=== PATIENT | male | born 1970 | race Caucasian/White ===

== ENCOUNTER 2023-08-20 10:40 | Day surgery (SDC) | payer BC ==
[~2023-08-20] VITALS: Ht 180.3 cm; Wt 112.6 kg
[2023-08-20] VITALS (7 sets, daily range): BP systolic 126–157; BP diastolic 89–111; PULSE 62–107; RESP 16; TEMP 98.1; O2SAT 93–100
[2023-08-20] MEDS ORDERED: SOTA80TA73 PO (11:02)
[2023-08-20] MEDS ORDERED: DILT120C52 PO (11:02)
[2023-08-20] MEDS ORDERED: APIX5TAB3 PO (11:02)
[2023-08-20] MEDS ORDERED: atropine 0.1mg/ml 10ml syringe IV ONE (11:05)
[2023-08-20] MEDS ORDERED: LORazepam 0.5 MG tablet PO ONE (11:05)
[2023-08-20] MEDS ORDERED: morphine 10mg/ml inj. IV ONE (11:05)
[2023-08-20] MEDS ORDERED: amiodarone 150mg/dext, iso-os 100 ML IV ONE (11:05)
[2023-08-20] MEDS ORDERED: normal saline 1000ml 1,000 ML IV SCH (11:05)
[2023-08-20] MEDS ORDERED: MIDAZolam 1mg/ml 10ml vial IV ONE ×2 (11:05→11:45)
[2023-08-20] MEDS ORDERED: diphenhydrAMINE 25mg capsule PO ONE (11:05)
[2023-08-20] MEDS ORDERED: fentaNYL/PF 50MCG/1 ML 2ML syringe IV ONE (11:45)
[2023-08-20 12:19] LABS: BASOPHILS # (AUTO) 0.1 X10'3 (0-0.2); BASOPHILS % (AUTO) 0.8 % (0-1); EOSINOPHILS # (AUTO) 0.1 X10'3 (0-0.9); EOSINOPHILS % (AUTO) 1.4 % (0-6); HEMATOCRIT 52.2 % (42.0-52.0); HEMOGLOBIN 17.9 g/dl (14.0-17.9); LYMPHOCYTES # (AUTO) 1.9 X10'3 (1.1-4.8); LYMPHOCYTES % (AUTO) 18.3 % (21-51); MEAN CORPUSCULAR HEMOGLOBIN 30.9 PG (27.0-31.0); MEAN CORPUSCULAR HGB CONC 34.4 g/dL (33.0-36.5); MEAN CORPUSCULAR VOLUME 89.9 FL (78-98); MEAN PLATELET VOLUME 8.1 FL (7.4-10.4); MONOCYTES # (AUTO) 0.8 X10'3 (0-0.9); MONOCYTES % (AUTO) 8.2 % (2-12); NEUTROPHILS # (AUTO) 7.4 X10'3 (1.8-7.7); NEUTROPHILS % (AUTO) 71.3 % (42-75); PLATELET COUNT 292 X10'3 (140-440); RED BLOOD COUNT 5.81 X10'6 (4.70-6.10); RED CELL DISTRIBUTION WIDTH 14.3 % (11.5-14.5); WHITE BLOOD COUNT 10.4 X10'3 (4.5-11.0)
[2023-08-20 12:24] LABS: ALBUMIN 3.7 G/DL (3.4-5.0); ANION GAP 12 (8-16); BLOOD UREA NITROGEN 12 MG/DL (7-18); BUN/CREATININE RATIO 12.1 (10.0-20.0); CALCIUM 8.9 MG/DL (8.5-10.1); CHLORIDE 105 MMOL/L (99-107); CREATININE 0.99 MG/DL (0.60-1.10); GLUCOSE 101 MG/DL (70-104); POTASSIUM 4.4 MMOL/L (3.5-5.1); SODIUM 140 MMOL/L (135-145); TOTAL CARBON DIOXIDE 22.9 MMOL/L (24-32); eCRCL 94 ML/MIN; eGFR 80 ML/MIN
[2023-08-20 12:27] LABS: INR 1.1 INR; PROTHROMBIN TIME 11.7 SECONDS (9.0-12.0)
== END 2023-08-20 13:30 | disposition home or self-care (01) ==
LOC: SSTAY O 10:40
PROVIDERS: ATTEND Student in an Organized Health Care Education/Training Program
DX: I48.91 Unspecified atrial fibrillation (principal); I10 Essential (primary) hypertension; G47.33 Obstructive sleep apnea (adult) (pediatric); Z88.0 Allergy status to penicillin; Z79.899 Other long term (current) drug therapy; Z79.01 Long term (current) use of anticoagulants
CPT/HCPCS: 36415; 80048; 85025; 85610; 92960; 93005; J2250; J3010; J7030

== ENCOUNTER → 2023-10-08 | Day surgery (SDC) | payer BC ==
[~2023-10-08] VITALS: Ht 180.3 cm; Wt 112.6 kg
[~2023-10-08] MED LIST: APIX5TAB3 PO; DILT120C52 PO; LOSA25TA41 PO; SOTA80TA73 PO
[2023-10-08 12:13] VITALS: BP 142/100; PULSE 79; RESP 12; TEMP 98.2; O2SAT 95
[2023-10-08] MEDS: normal saline 1000ml 1,000 ML IV SCH (12:15)
[2023-10-08 13:04] LABS: BASOPHILS # (AUTO) 0.1 X10'3 (0-0.2); EOSINOPHILS # (AUTO) 0.2 X10'3 (0-0.9); MEAN CORPUSCULAR HGB CONC 34.1 g/dL (33.0-36.5); MONOCYTES # (AUTO) 0.8 X10'3 (0-0.9); RED CELL DISTRIBUTION WIDTH 13.9 % (11.5-14.5)
[2023-10-08 13:06] LABS: BASOPHILS % (AUTO) 0.7 % (0-1); EOSINOPHILS % (AUTO) 1.6 % (0-6); HEMATOCRIT 53.3 % (42.0-52.0); LYMPHOCYTES % (AUTO) 18.3 % (21-51); MEAN CORPUSCULAR HEMOGLOBIN 30.8 PG (27.0-31.0); MEAN CORPUSCULAR VOLUME 90.1 FL (78-98); MEAN PLATELET VOLUME 8.6 FL (7.4-10.4); MONOCYTES % (AUTO) 7.4 % (2-12); NEUTROPHILS # (AUTO) 7.7 X10'3 (1.8-7.7); PLATELET COUNT 287 X10'3 (140-440); RED BLOOD COUNT 5.92 X10'6 (4.70-6.10); WHITE BLOOD COUNT 10.7 X10'3 (4.5-11.0)
[2023-10-08 13:10] LABS: ANION GAP 6 (8-16); BLOOD UREA NITROGEN 11 MG/DL (7-18); BUN/CREATININE RATIO 10.6 (10.0-20.0); CALCIUM 8.3 MG/DL (8.5-10.1); CHLORIDE 104 MMOL/L (99-107); CREATININE 1.04 MG/DL (0.60-1.10); GLUCOSE 95 MG/DL (70-104); POTASSIUM 4.1 MMOL/L (3.5-5.1); SODIUM 139 MMOL/L (135-145); TOTAL CARBON DIOXIDE 29.5 MMOL/L (24-32); eCRCL 90 ML/MIN; eGFR 75 ML/MIN
[2023-10-08 13:11] LABS: INR 1.1 INR; PROTHROMBIN TIME 11.5 SECONDS (9.0-12.0)
[2023-10-08 13:43] LABS: HEMOGLOBIN 18.2 g/dl (14.0-17.9)
[2023-10-08 15:29] VITALS: RESP 12
[2023-10-08] MEDS: fentaNYL/PF 50MCG/1 ML 2ML syringe IV ONE (15:29)
[2023-10-08] MEDS: MIDAZolam 1mg/ml 10ml vial IV ONE (15:29)
== END | disposition home or self-care (01) ==
LOC: SSTAY O 11:55
PROVIDERS: ATTEND Student in an Organized Health Care Education/Training Program
DX: I48.91 Unspecified atrial fibrillation (principal); I10 Essential (primary) hypertension; G47.33 Obstructive sleep apnea (adult) (pediatric); D75.1 Secondary polycythemia; Z79.899 Other long term (current) drug therapy; Z79.01 Long term (current) use of anticoagulants; Z88.0 Allergy status to penicillin
CPT/HCPCS: 36415; 80048; 85025; 85610; 92960; 93005; J2250; J3010; J7030; A4620